=== PATIENT | male | born 2000 | race Caucasian/White ===

== ENCOUNTER 2024-09-22 14:20 | Emergency (ER) | payer BC ==
[~2024-09-22] VITALS: Ht 182.9 cm; Wt 118.2 kg
[2024-09-22 14:23] VITALS: BP 164/85; PULSE 86; RESP 16; O2SAT 100
[2024-09-22 15:50] VITALS: TEMP 97.5
== END 2024-09-22 15:54 | disposition home or self-care (01) ==
LOC: ER 14:20
DX: R42 Dizziness and giddiness (principal); R51.9 Headache, unspecified; R10.13 Epigastric pain
CPT/HCPCS: 99281; A6446

== ENCOUNTER 2024-09-22 16:42 | Emergency (ER) | payer BC, OTHER ==
[~2024-09-22] VITALS: Ht 182.9 cm; Wt 122.5 kg
[2024-09-22 17:57] LABS: BASOPHILS % (AUTO) 0.4 % (0-1); EOSINOPHILS # (AUTO) 0.2 X10'3 (0-0.9); EOSINOPHILS % (AUTO) 2.1 % (0-6); HEMATOCRIT 46.2 % (42.0-52.0); LYMPHOCYTES # (AUTO) 1.8 X10'3 (1.1-4.8); MEAN CORPUSCULAR HEMOGLOBIN 31.3 PG (27.0-31.0); MEAN CORPUSCULAR HGB CONC 34.6 g/dL (33.0-36.5); MEAN CORPUSCULAR VOLUME 90.6 FL (78-98); MEAN PLATELET VOLUME 7.6 FL (7.4-10.4); MONOCYTES # (AUTO) 0.5 X10'3 (0-0.9); MONOCYTES % (AUTO) 6.5 % (2-12); NEUTROPHILS # (AUTO) 5.6 X10'3 (1.8-7.7); PLATELET COUNT 345 X10'3 (140-440); WHITE BLOOD COUNT 8.1 X10'3 (4.5-11.0)
[2024-09-22 18:11] LABS: ALANINE AMINOTRANSFERASE 29 U/L (12-78); ALBUMIN 4.6 G/DL (3.4-5.0); ALBUMIN/GLOBULIN RATIO 1.1 (1.1-1.5); ALKALINE PHOSPHATASE 96 IU/L (46-116); ANION GAP 5 (8-16); ASPARTATE AMINO TRANSFERASE 18 U/L (10-37); BILIRUBIN,TOTAL 0.6 MG/DL (0.1-1.0); BLOOD UREA NITROGEN 14 MG/DL (7-18); BUN/CREATININE RATIO 12.4 (10.0-20.0); CALCIUM 9.5 MG/DL (8.5-10.1); CHLORIDE 105 MMOL/L (99-107); CREATININE 1.13 MG/DL (0.60-1.10); GLUCOSE 118 MG/DL (70-104); POTASSIUM 4.3 MMOL/L (3.5-5.1); SODIUM 141 MMOL/L (135-145); TOTAL CARBON DIOXIDE 30.9 MMOL/L (24-32); TOTAL PROTEIN 8.9 G/DL (6.4-8.2); eCRCL 110 ML/MIN; eGFR 79 ML/MIN
[2024-09-22 18:19] LABS: PRO BRAIN NATRIURETIC PEPTIDE 31 PG/ML (0-125)
[2024-09-22 18:44] VITALS: BP 163/87; PULSE 81; RESP 16; TEMP 98.2; O2SAT 98
== END 2024-09-22 18:46 | disposition home or self-care (01) ==
LOC: ER 16:42
DX: R42 Dizziness and giddiness (principal); H92.01 Otalgia, right ear; J02.9 Acute pharyngitis, unspecified
CPT/HCPCS: 36415; 71045; 80053; 83880; 84484; 85025; 93005; 99285